=== PATIENT | female | born 1965 | race Caucasian/White ===

== ENCOUNTER 2021-07-07 07:14 | Day surgery (SDC) | payer OTHER, SELFPAY ==
--- NOTE | 2021-07-07 07:27 | PCM.HP.BLA ---
History and Physical Date of Admission: 07/07/21 55 F who presents to the office today for positive Cologuard. Referred for further evaluation of positive Cologuard screening performed 03.25.22. Denies issues with bowel habits or bowel changes. Reports that her has a lot of issues with colitis and bowel issues. She takes a probiotic and feels this is helpful with her bowels. Family history of sister and brother with polyps and melanoma; father skin and prostate cancer with subsequent ; mother had lung cancer with metastases with subsequent . ROS Const Constitutional: No anorexia, fatigue, fever(s), weight change or sleep problems Eyes Eyes: No change in vision ENT ENT: No abnormal hearing, difficulty swallowing, mouth lesions, tongue swelling or throat swelling Resp Respiratory: No cough or shortness of breath Cardio Cardiology: No chest pain at rest, chest pain with exertion, shortness of breath or dyspnea on exertion Gastro GI: No difficulty swallowing Genitourinary-Female: No difficulty urinating or burning urination Musc Musculoskeletal: No joint pain, joint swelling, muscle weakness or decreased muscle mass Skin Skin: No hair loss in leg, yellowing of the eye, itchy eyes, rash, skin ulcer or skin swelling Neuro Neurology: No abnormal hearing, abnormal movements, confusion, unsteady gait/balance or memory loss Psych Psychiatric: No anxiety, No confusion and No memory loss Endo Endocrine: No fatigue or weight change Aller/Imm Allergy/Immunologic: No itchy eyes, throat swelling or tongue swelling David/Lymp Hematologic/Lymphatic: No easy bleeding, easy bruising or enlarged lymph nodes Exam Const General: cooperative and comfortable Nutritional Appearance: average body habitus and well nourished [facility] Head: normal to inspection Ears: hearing grossly normal bilaterally Nose: external nose normal Face and sinus: normal facial exam Mouth: oral mucosae normal Throat: posterior oropharynx normal Eyes General: appearance normal, both eyes and all related structures Neck Neck: normal visual inspection Chest Chest palpation & inspection: normal inspection of the chest and normal palpation of entire chest wall Resp Effort & Inspection: normal respiratory effort Auscultation: Bilateral: Clear to Auscultation Cardio Palpation: normal PMI Rate: regular rate Rhythm: regular rhythm GI Inspection: normal to inspection Auscultation: normal bowel sounds Percussion: normal to percussion Palpation: no hepatosplenomegaly Skin General: no rashes or lesions noted Neuro General: patient alert Extrem General: normal to inspection Psych Affect: normal affect Assessment and Plan Assessment and Plan (1) Positive colorectal cancer screening using Cologuard test: Status: Acute Plan - Dr. Gaviria Friend, DO: She will undergo a screening colonoscopy. She was explained alternatives, risk, benefits including outstanding bleeding, infection, sepsis, perforation, need for emergency or . She will have an ASA of 1. I have re-examined the patient. There are no clinical changes since date of exam.
[2021-07-07 07:41] VITALS: BP 111/72; PULSE 88; RESP 16; TEMP 37.3; O2SAT 98; BMI 19.1
[2021-07-07] MEDS: Lactated Ringers 1,000 ML 15 ML IV (07:45)
[2021-07-07 08:50] VITALS: BP 111/72; BP 95/67; PULSE 78; RESP 16; TEMP 36.6; O2SAT 100
--- NOTE | 2021-07-07 08:51 | OP.COLON_ITS ---
Patient Name: Lisa Emanuel Procedure Date: 07/07/2021 8:13 AM Date of : 1965 Age: 55 Procedure: Colonoscopy Indications: Screening for colorectal malignant neoplasm Providers: Everette Delgado DO Medicines: See the Anesthesia note for documentation of the administered medications Patient Profile: This is a 55 year old female. Refer to note in patient chart for documentation of history and physical. Last Colonoscopy: none. The patient's first colonoscopy is today. Complications: No immediate complications. Procedure: Pre-Anesthesia Assessment: - Prior to the procedure, a History and Physical was performed, and patient medications and allergies were reviewed. The risks and benefits of the procedure and the sedation options and risks were discussed with the patient. All questions were answered and informed consent was obtained. Patient identification and proposed procedure were verified by the physician in the pre-procedure area. Mental Status Examination: alert and oriented. Airway Examination: normal oropharyngeal airway and neck mobility. Respiratory Examination: clear to auscultation. CV Examination: normal. Prophylactic Antibiotics: The patient does not require prophylactic antibiotics. Prior Anticoagulants: The patient has taken no previous anticoagulant or antiplatelet agents. ASA Grade Assessment: II - A patient with mild systemic disease. After reviewing the risks and benefits, the patient was deemed in satisfactory condition to undergo the procedure. The anesthesia plan was to use moderate sedation / analgesia (conscious sedation). Immediately prior to administration of medications, the patient was re-assessed for adequacy to receive sedatives. The heart rate, respiratory rate, oxygen saturations, blood pressure, adequacy of pulmonary ventilation, and response to care were monitored throughout the procedure. The physical status of the patient was re-assessed after the procedure. After I obtained informed consent, the scope was passed under direct vision. Throughout the procedure, the patient's blood pressure, pulse, and oxygen saturations were monitored continuously. The colonoscope was introduced through the anus and advanced to the cecum, identified by appendiceal orifice and ileocecal valve. The colonoscopy was performed without difficulty. The patient tolerated the procedure well. The quality of the bowel preparation was good. Moderate Sedation: Moderate (conscious) sedation was administered by the endoscopy nurse and supervised by the endoscopist. The patient's oxygen saturation, heart rate, blood pressure and response to care were monitored. Total physician intraservice time was 15 minutes. Scope In: 8:28:28 AM Scope Withdrawal Time 0 hours 11 minutes 59 seconds Scope Out: 8:47:26 AM Total Procedure Duration Time 0 hours 18 minutes 58 seconds Findings: The perianal and digital rectal examinations were normal. A few small-mouthed diverticula were found in the sigmoid colon and descending colon. The exam was otherwise without abnormality on direct and retroflexion views. Impression: - Diverticulosis in the sigmoid colon and in the descending colon. - The examination was otherwise normal on direct and retroflexion views. - No specimens collected. Recommendation: - Discharge patient to home. - Resume previous diet. - Continue present medications. - Await pathology results. - Repeat colonoscopy in 10 years for screening purposes. Procedure Code(s): --- Professional --- G0121, Colorectal cancer screening; colonoscopy on individual not meeting criteria for high risk G0500, Moderate sedation services provided by the same physician or other qualified health adult caregiver performing a gastrointestinal endoscopic service that sedation supports, requiring the presence of an independent trained observer to assist in the monitoring of the patient's level of consciousness and physiological status; initial 15 minutes of intra-service time; patient age 5 years or older (additional time may be reported with 45220, as appropriate) CPT copyright 2017 [employer]. All rights reserved. The codes documented in this report are preliminary and upon cold storage supervisor review may be revised to meet current compliance requirements. Everette Delgado DO 07/07/2021 8:51:05 AM This report has been signed electronically. Number of Addenda: 1 Note Initiated On: 07/07/2021 8:13 AM Addendum Number: 1 Addendum Date: 12/25/2021 6:41:51 AM MAC was used as sedation for this procedure. Everette Delgado DO 12/25/2021 6:41:57 AM This report has been signed electronically.
[2021-07-07 08:55] VITALS: BP 100/64; BP 111/72; PULSE 73; RESP 16; O2SAT 100
[2021-07-07 09:00] VITALS: BP 104/68; BP 111/72; PULSE 73; RESP 16; O2SAT 100
[2021-07-07 09:05] VITALS: BP 103/70; BP 111/72; PULSE 68; RESP 16; TEMP 36.6; O2SAT 100
[2021-07-07 09:24] VITALS: BP 111/72
== END 2021-07-07 23:59 | disposition home or self-care (01) ==
LOC: EN 07:16 → AC 07:18
PROVIDERS: PCP Nurse Practitioner Family; Referring Provider Nurse Practitioner Family; Visit Provider Internal Medicine Gastroenterology
PROC: 0DJD8ZZ Inspection of Lower Intestinal Tract, Via Natural or Artificial Opening Endoscopic (ICD-10-PCS; CPT 45378; principal; 2021-07-07 08:40)
DX: Z12.11 Encounter for screening for malignant neoplasm of colon (principal); K57.30 Diverticulosis of large intestine without perforation or abscess without bleeding; R19.5 Other fecal abnormalities
CPT/HCPCS: 45378; 87426; J7120; J2405